=== PATIENT | male | born 1985 | race Caucasian/White ===

== ENCOUNTER 2022-12-28 20:44 | Emergency (ER) | payer BC, OTHER ==
[2022-12-28 20:56] VITALS: BP 147/101; PULSE 85; RESP 16; TEMP 98.2; BMI 29.2
[2022-12-28] MEDS ORDERED: AMOX TR/POT CLAV 875MG/125MG TABLETS (FP) PO ONE (21:01)
[2022-12-28] MEDS ORDERED: AMOX TR/POT CLAV 875MG/125MG TABLETS (FP) ONE (21:04)
== END 2022-12-28 21:09 | disposition home or self-care (01) ==
LOC: FER 20:44
DX: S61.201A Unspecified open wound of left index finger without damage to nail, initial encounter (principal); M79.645 Pain in left finger(s); W54.0XXA Bitten by dog, initial encounter
CPT/HCPCS: 99283-25